=== PATIENT | female | born 1965 | race Caucasian/White ===

== ENCOUNTER → 2021-02-02 | Outpatient (CLI) | payer BC, OTHER ==
[~2021-02-02] MED LIST: ASPIR-LOW81 MG PO; ASPIRIN EC81 MG PO; CALCIUM500 MG PO; IBUPROFEN600 MG PO; NORCO 5-325 TA1 EACH PO; ONE DAILY WOME1 EAC1 PO; PERCOCET 7.5-31 EACH PO; STOOL SOFTENER250 MG PO; ZOFRAN4 MG PO
== END ==
LOC: KOH-I 15:08
DX: R29.898 Other symptoms and signs involving the musculoskeletal system (principal); M47.812 Spondylosis without myelopathy or radiculopathy, cervical region
CPT/HCPCS: 72040